=== PATIENT | female | born 1960 | race Hispanic/Latino ===

== ENCOUNTER 2020-04-24 00:38 | Emergency (ER) | payer OTHER ==
[2020-04-24] MEDS ORDERED: LABETALOL 20 MG/4 ML DISP.SYRIN IV ONE (01:06)
[2020-04-24 01:40] LABS: BASOPHILS % (AUTO) 0.6 % (0.0-5.0); EOSINOPHILS % (AUTO) 2.4 % (0.0-8.0); HEMATOCRIT 42.3 % (36-48); LYMPHOCYTES % (AUTO) 45.3 % (21.0-51.0); MEAN CORPUSCULAR HEMOGLOBIN 31.2 pg (27.0-33.0); MEAN CORPUSCULAR HGB CONC 32.9 g/dL (32.0-36.0); MEAN CORPUSCULAR VOLUME 95.1 fL (79-99); MONOCYTES % (AUTO) 7.4 % (3.0-13.0); NEUTROPHILS % (AUTO) 43.9 % (40.0-77.0); PLATELET COUNT (AUTO) 260 K/uL (130-400); RED BLOOD CELL COUNT(AUTO) 4.45 MIL/uL (4.00-5.50); RED CELL DISTRIBUTION WIDTH 12.8 % (11.0-15.5); WHITE BLOOD COUNT (AUTO) 8.3 K/uL (4.8-10.8)
[2020-04-24 01:47] LABS: CREATININE 0.8 mg/dL (0.5-1.5); POTASSIUM 3.2 mmol/L (3.5-5.1)
== END 2020-04-24 02:32 | disposition home or self-care (01) ==
LOC: EDH 00:38
DX: I10 Essential (primary) hypertension (principal); R51 Headache; Z90.710 Acquired absence of both cervix and uterus; Z90.49 Acquired absence of other specified parts of digestive tract; Z98.890 Other specified postprocedural states; Z87.891 Personal history of nicotine dependence
CPT/HCPCS: 36415; 70450; 80048; 84484; 85025; 93005; 96374

== ENCOUNTER 2020-05-03 06:23 | Observation (INO) | payer OTHER ==
[2020-05-03] MEDS ORDERED: ONDANSETRON HCL 4 MG/2 ML VIAL ONE (07:18)
[2020-05-03] MEDS ORDERED: LIDOCAINE 5% TOPICAL PATCH TP ONE (07:18)
[2020-05-03] MEDS ORDERED: ASPIRIN 325 MG TABLET ONE (07:19)
[2020-05-03 08:43] LABS: BASOPHILS % (AUTO) 0.4 % (0.0-5.0); EOSINOPHILS % (AUTO) 1.1 % (0.0-8.0); HEMATOCRIT 41.6 % (36-48); LYMPHOCYTES % (AUTO) 26.4 % (21.0-51.0); MEAN CORPUSCULAR HEMOGLOBIN 31.4 pg (27.0-33.0); MEAN CORPUSCULAR HGB CONC 33.2 g/dL (32.0-36.0); MEAN CORPUSCULAR VOLUME 94.8 fL (79-99); MONOCYTES % (AUTO) 5.2 % (3.0-13.0); NEUTROPHILS % (AUTO) 66.8 % (40.0-77.0); PLATELET COUNT (AUTO) 252 K/uL (130-400); RED BLOOD CELL COUNT(AUTO) 4.39 MIL/uL (4.00-5.50); RED CELL DISTRIBUTION WIDTH 12.7 % (11.0-15.5); WHITE BLOOD COUNT (AUTO) 7.5 K/uL (4.8-10.8)
[2020-05-03 08:57] LABS: APPEARANCE,URINE Clear (CLEAR); BILIRUBIN,URINE Negative (NEGATIVE); COLOR,URINE Yellow (YELLOW); GLUCOSE, URINE (UA) Negative (NEGATIVE); KETONES,URINE Negative (NEGATIVE); LEUKOCYTE ESTERASE ,URINE Negative (NEGATIVE); NITRATE,URINE Negative (NEGATIVE); OCCULT BLOOD,URINE Negative (NEGATIVE); PH,URINE 7.5 (5.0-8.0); PROTEIN,URINE Negative (NEGATIVE); UROBILINOGEN,URINE 0.2 mg/dL (0.2-1.0)
[2020-05-03 09:00] LABS: ALBUMIN 3.4 g/dL (3.5-5.0); BILIRUBIN,TOTAL 0.4 mg/dL (0.2-1.0); CREATININE 0.8 mg/dL (0.5-1.5); POTASSIUM 3.9 mmol/L (3.5-5.1); TOTAL PROTEIN, SERUM 7.7 g/dL (6.0-8.3)
[2020-05-03 09:03] LABS: INR 0.94 (0.85-1.15); PARTIAL THROMBOPLASTIN TIME 25.7 SEC (26.3-35.5); PROTHROMBIN TIME 10.2 SEC (9.6-11.6)
[2020-05-03] MEDS ORDERED: HYDRALAZINE HCL 20 MG/ML VIAL IV PRN (11:15)
[2020-05-03] MEDS ORDERED: NITROGLYCERIN 0.4 MG SL TAB SL PRN (11:15)
[2020-05-03] MEDS ORDERED: LACTULOSE 20 GM/30 ML UDCUP PO PRN (11:15)
[2020-05-03] MEDS ORDERED: ACETAMINOPHEN 325 MG TAB PO PRN (11:15)
[2020-05-03] MEDS ORDERED: ONDANSETRON HCL 4 MG/2 ML VIAL IV PRN (11:15)
--- NOTE | 2020-05-03 16:05 | NUR ---
DISCHARGE INSTRUCTION PROVIDED TO PATIENT ,ALONG WITH PRESCRIPTION AND FOLLOW UP APPT . DRESSING IS DRY AND INTACT . PATIENT VERBALIZED UNDERSTANDING
[2020-05-03] MEDS ORDERED: AMLO5TAB9 PO (16:26)
[2020-05-03 16:52] VITALS: BP 116/64
[2020-05-03 20:09] VITALS: BP 112/65
[2020-05-04 00:12] VITALS: BP 120/76
[2020-05-04 04:19] VITALS: BP 130/86
[2020-05-04 04:52] LABS: BASOPHILS % (AUTO) 0.7 % (0.0-5.0); EOSINOPHILS % (AUTO) 2.5 % (0.0-8.0); HEMATOCRIT 40.8 % (36-48); LYMPHOCYTES % (AUTO) 38.7 % (21.0-51.0); MEAN CORPUSCULAR HEMOGLOBIN 31.4 pg (27.0-33.0); MEAN CORPUSCULAR HGB CONC 32.6 g/dL (32.0-36.0); MEAN CORPUSCULAR VOLUME 96.2 fL (79-99); MONOCYTES % (AUTO) 6.8 % (3.0-13.0); NEUTROPHILS % (AUTO) 50.9 % (40.0-77.0); PLATELET COUNT (AUTO) 254 K/uL (130-400); RED BLOOD CELL COUNT(AUTO) 4.24 MIL/uL (4.00-5.50); RED CELL DISTRIBUTION WIDTH 12.9 % (11.0-15.5); WHITE BLOOD COUNT (AUTO) 7.3 K/uL (4.8-10.8)
[2020-05-04 05:08] LABS: CREATININE 0.8 mg/dL (0.5-1.5); POTASSIUM 3.9 mmol/L (3.5-5.1)
[2020-05-04] MEDS ORDERED: AMLODIPINE BESYLATE 5 MG TAB PO SCH (09:00)
[2020-05-04] MEDS ORDERED: ENOXAPARIN SODIUM 40 MG/0.4 ML SYRINGE SQ SCH (09:00)
[2020-05-04 09:01] VITALS: BP 128/81
--- NOTE | 2020-05-04 11:03 | NUR ---
SPOKE W PATIENT AT BEDSIDE PT LIVE W SPOUSE, IS ACTIVE, INDEPENDENT, EMPLOYED, WITH NO DME- STATES HAVING PROBLEMS [id number] HER BLOOD PRESSURE LATELY PENDING RECORDS FROM DR. LOU OFFICE. SPOUSE VANDANA TO TRANSPORT HOME, NALINI TO FOLLOW IF NEEDED Addendum: 05/04/20 at 1842 by ZACK TALLEY RN CM Amended: Links added.
[2020-05-04 11:44] VITALS: BP 134/76
[2020-05-04] MEDS ORDERED: ATOR40TA69 PO (15:26)
[2020-05-04] MEDS ORDERED: AMLO10TA7 PO (15:26)
[2020-05-04] MEDS ORDERED: AEC81 PO (15:26)
[2020-05-04 15:50] VITALS: BP 105/64
--- NOTE | 2020-05-04 16:31 | NUR ---
Discharge. Pt clear for discharge. VS stable. Pt aaox4. Airway patent breathing even and unlabored. Pt denies chest pain/sob Pt and daughter Gisela verbalizes understanding of follow up care with Dr Lewis and medication teaching
== END 2020-05-04 14:45 | disposition home or self-care (01) ==
LOC: EDH 06:23 → EDHIP 11:08 → 4BH 15:52
PROVIDERS: ADMIT Internal Medicine; ATTEND Internal Medicine
DX: R07.89 Other chest pain (principal); H93.19 Tinnitus, unspecified ear; I10 Essential (primary) hypertension; E66.9 Obesity, unspecified; Z90.710 Acquired absence of both cervix and uterus; Z90.49 Acquired absence of other specified parts of digestive tract
CPT/HCPCS: 36415 ×2; 71045; 80048; 80053; 80061; 81003; 84484 ×4; 85025 ×2; 85610; 85730; 93005; 96372; 99285; G0378 ×14; J1650; J2405

== ENCOUNTER → 2020-05-23 | Outpatient (CLI) | payer OTHER ==
[~2020-05-23] MED LIST: AEC81 PO; AMLO-258 PO; ATOR40TA69 PO
== END | disposition home or self-care (01) ==
LOC: RAH 10:34
PROVIDERS: ATTEND Internal Medicine Cardiovascular Disease
DX: Z13.6 Encounter for screening for cardiovascular disorders (principal)
CPT/HCPCS: 75571

== ENCOUNTER 2025-02-02 14:33 | Emergency (ER) | payer BC, OTHER ==
[~2025-02-02] VITALS: Ht 165.1 cm; Wt 108.9 kg
--- NOTE | 2025-02-02 15:23 | HMCIMG ---
CHEST 1VW HISTORY: Abdominal pain COMPARISON: 05/03/2020 FINDINGS: A frontal projection of the chest was obtained. No acute pulmonary infiltrates is seen. The heart is borderline enlarged. Degenerative changes are seen. No evidence of aortic calcification is seen. IMPRESSION: 1. No acute pulmonary infiltrate is seen.
[2025-02-02] MEDS: LACTATED RINGERS 1000ML 1,000 ML IV ONE (15:29)
[2025-02-02] MEDS: ketOROlac 15MG/ML VIAL (15MG/ML) IV ONE (15:30)
[2025-02-02 15:35] LABS: BASOPHILS # (AUTO) 0.06 K/uL (0.00-0.20); BASOPHILS % (AUTO) 0.9 % (0.0-5.0); HEMATOCRIT 38.3 % (36-48); IMMATURE GRANULOCYTE ABSOLUTE 0.02 K/uL (0-1); LYMPHOCYTES % (AUTO) 29.6 % (21.0-51.0); MEAN CORPUSCULAR HEMOGLOBIN 31.8 pg (27.0-33.0); MEAN CORPUSCULAR HGB CONC 33.4 g/dL (32.0-36.0); MEAN CORPUSCULAR VOLUME 95.3 fL (79-99); MONOCYTES # (AUTO) 0.5 K/uL (0.1-1.0); MONOCYTES % (AUTO) 7.3 % (3.0-13.0); NEUTROPHILS % (AUTO) 58.9 % (40.0-77.0); PLATELET COUNT (AUTO) 277 K/uL (130-400); RED BLOOD CELL COUNT(AUTO) 4.02 MIL/uL (4.00-5.50); RED CELL DISTRIBUTION WIDTH 13.2 % (11.0-15.5); WHITE BLOOD COUNT (AUTO) 6.8 K/uL (4.8-10.8)
[2025-02-02 15:44] LABS: CREATININE 0.7 mg/dL (0.5-1.0); POTASSIUM 3.7 mmol/L (3.5-5.1)
--- NOTE | 2025-02-02 16:05 | HMCIMG ---
CT ABDOMEN/PELVIS W/O CONTRAST HISTORY: Left flank pain COMPARISON: None TECHNIQUE: Multiple sequential axial images of the abdomen and pelvis were obtained from the dome of the diaphragm through symphysis pubis. Patient was not given contrast through intravenous route. Oral contrast was not given. FINDINGS: No pleural effusion is seen bilaterally. There is no evidence of parenchymal disease or pulmonary nodule of the visualized lower lungs. Degenerative changes of the thoracolumbar spine are present. The heart is not enlarged. Postcholecystectomy changes are seen. There are bilateral renal cortical scarring. The liver, spleen, adrenal glands and pancreas are unremarkable. There is no evidence of hydronephrosis bilaterally. No evidence of renal stone is seen. There is diverticulosis. Fecal material is seen in the colon. There are normal size retroperitoneal and mesenteric lymph nodes. No ascites is seen. No CT evidence of acute appendicitis is seen. Pelvic sidewalls are symmetric bilaterally. The bladder is poorly distended. IMPRESSION: 1. Bilateral renal cortical scarring. There is left external renal pelvis. Otherwise no hydronephrosis is seen. CT was performed with one or more following dose reduction techniques: automated exposure control, adjustment of the mA and kv according to patient's size, or use of a iterative reconstruction technique.
[2025-02-02] MEDS: hydroMORPHone 1 MG INJ IVP ONE (16:21)
[2025-02-02 16:45] LABS: APPEARANCE,URINE CLEAR (CLEAR); BILIRUBIN,URINE NEGATIVE (NEGATIVE); COLOR,URINE LIGHT-YELLOW (YELLOW); GLUCOSE, URINE (UA) NEGATIVE (NEGATIVE); KETONES,URINE 10 mg/dL (NEGATIVE); LEUKOCYTE ESTERASE ,URINE NEGATIVE Leu/uL (NEGATIVE); NITRATE,URINE NEGATIVE (NEGATIVE); OCCULT BLOOD,URINE MODERATE (NEGATIVE); PH,URINE 5.5 (5.0-8.0); PROTEIN,URINE NEGATIVE (NEGATIVE); UROBILINOGEN,URINE 0.2 mg/dL (0.2-1.0)
[2025-02-02 16:46] LABS: ADD UA MICROSCOPIC YES
[2025-02-02 16:47] LABS: MUCUS,URINE RARE LPF (None Seen); RBC,URINE 26-50 /HPF (0-1); SQUAMOUS EPITHELIAL CELL,UR RARE /HPF (0-2)
--- NOTE | 2025-02-02 17:42 | ERN ---
General Chief Complaint: Flank Pain Stated Complaint: LT FLANK PAIN Time Seen by MD: 14:36 History of Present Illness Initial Comments 64-year-old female presents for left flank and left lower abdominal pain for the last three days. Patient reports initially the pain started in the left flank about three days ago. It was mild but since that has increased. It is located in left flank and radiates to the left lower quadrants and also down the left buttock. She reports that it is present at all times in his severe. It was not increase with any movements or palpation. She reports nausea without vomiting. No fevers. No diarrhea. No urinary changes. She went to her PCP and was started on Macrobid. Allergies: Coded Allergies: No Allergy Information Available (Verified Allergy, Unknown, 05/03/20) Home Meds Active Scripts Atorvastatin Calcium (LIPITOR) 40 Mg Tablet, 40 MG PO DAILY for 30 Days, #30 TAB Prov:JASON RAMOS MD 05/04/20 Aspirin (ASPIRIN 81 MG ECTAB) 81 Mg Ectab, 81 MG PO DAILY for 30 Days, #30 TAB.EC Prov:JASON RAMOS MD 05/04/20 Amlodipine Besylate (Amlodipine Besylate) 10 Mg Tablet, 10 MG PO DAILY for 30 Days, #30 TAB Prov:JASON RAMOS MD 05/04/20 Past Medical History Past Medical History: Diabetes-Type II, Hypertension Past Surgical History: Hysterectomy, Cholecystectomy, Surgical History Other: HERNIA ROS Dictation CONSTITUTIONAL: No chills, no fever, no weakness, no diaphoresis, no malaise. HEAD/FACE: No signs of trauma. EENT: No eye pain, no blurred vision, no tearing, no double vision, no ear pain, no ear discharge, no nose pain, no nasal congestion, no throat pain, no throat swelling, no mouth pain. RESPIRATORY: No cough, no orthopnea, no SOB, no stridor, no wheezing. CARDIOVASCULAR: No chest pain, no edema, no palpitations, no syncope. GASTROINTESTINAL/ABDOMINAL: Left flank pain GENITOURINARY: No abnormal discharge, no dysuria, no frequent urination, no hematuria. No complaints of pain in the genitals. MUSCULOSKELETAL: No back pain, no gout, no joint pain, no joint swelling, no muscle pain, no muscle stiffness, no neck pain. INTEGUMENTARY: No change in color, no change in hair/nails, no dryness, no lesion, no lumps, no rash. NEUROLOGICAL/PSYCH: No anxiety, not depressed, no emotional problem, no headache, no numbness, no pre-existing deficit, no history of seizures, no tremors, no weakness. HEMATOLOGIC/LYMPHATIC: Not anemic, no history of blood clots, no apparent bleeding, no bruising, glands not swollen. All Systems Negative, Except as Noted. Physical Exam Physical Exam Dictation VITAL SIGNS: Reviewed. GENERAL APPEARANCE: Alert, oriented x3, no acute distress, obese. HEAD AND FACE: Non-traumatic. EYES: PERRL, pink conjunctivas, eyelid no trauma, anterior chamber clear. EARS: Pinnas intact and no signs of trauma or erythema. Ear canals clear and no discharge. TMs no erythema. NOSE: No discharge, no bleeding. OROPHARYNX: Mouth normal, teeth no caries, tongue pink. Pharynx clear, no erythema. Tonsils no exudates, no abscesses noted. Mucous membrane moist. NECK: Supple, non-tender, no thyromegaly, no masses, no JVD, no bruits. BREAST: Deferred. CHEST: No tenderness, no crepitus, no paradoxical movement, no retractions. LUNGS: Clear, well-ventilated, symmetric, no rales, no wheezing, no rhonchi, no stridor, good breath sounds bilaterally. HEART: Regular rate, regular rhythm, no murmur, no gallops. VASCULAR: No peripheral edema. ABDOMEN: Soft, positive bowel sounds, nondistended, no guarding, nontender, no rebound, no masses no hepatomegaly, no splenomegaly, no Fuentes's sign, no hernias. RECTAL: Deferred. GENITAL: Deferred. NEUROLOGICAL: Normal speech, gross motor function intact, gross sensory function intact. MUSCULOSKELETAL: Neck nontender, full range of motion, back nontender, full range of motion. EXTREMITIES: Nontender, full range of motion. SKIN: Color pink, dry, no turgor, no rash, no lacerations, no abrasions, no contusions. LYMPHATICS: Deferred. Results Laboratory and Microbiology Lab and Micro Result Laboratory Tests Test 02/02/25 15:24 02/02/25 16:21 White Blood Count 6.8 K/uL (4.8-10.8) Red Blood Count 4.02 MIL/uL (4.00-5.50) Hemoglobin 12.8 g/dL (12.0-16.0) Hematocrit 38.3 % (36-48) Mean Corpuscular Volume 95.3 fL (79-99) Mean Corpuscular Hemoglobin 31.8 pg (27.0-33.0) Mean Corpuscular Hemoglobin Concent 33.4 g/dL (32.0-36.0) Red Cell Distribution Width 13.2 % (11.0-15.5) Platelet Count 277 K/uL (130-400) Mean Platelet Volume 10.5 fL (7.5-10.5) Immature Granulocyte % (Auto) 0.3 % (0-1) Neutrophils (%) (Auto) 58.9 % (40.0-77.0) Lymphocytes (%) (Auto) 29.6 % (21.0-51.0) Monocytes (%) (Auto) 7.3 % (3.0-13.0) Eosinophils (%) (Auto) 3.0 % (0.0-8.0) Basophils (%) (Auto) 0.9 % (0.0-5.0) Neutrophils # (Auto) 4.0 K/uL (1.8-7.7) Lymphocytes # (Auto) 2.0 K/uL (1.0-4.8) Monocytes # (Auto) 0.5 K/uL (0.1-1.0) Eosinophils # (Auto) 0.20 K/uL (0.00-0.70) Basophils # (Auto) 0.06 K/uL (0.00-0.20) Absolute Immature Granulocyte (auto 0.02 K/uL (0-1) Nucleated Red Blood Cells 0.0 % (0.0-0.19) Sodium Level 139 mmol/L (136-145) Potassium Level 3.7 mmol/L (3.5-5.1) Chloride Level 103 mmol/L (101-111) Carbon Dioxide Level 28 mmol/L (21-32) Blood Urea Nitrogen 17 mg/dL (7-18) Creatinine 0.7 mg/dL (0.5-1.0) Glomerular Filtration Rate Calc 98 mL/min (>90) Random Glucose 112 mg/dL (70-105) H Total Calcium 8.9 mg/dL (8.5-10.1) Total Creatine Kinase 67 U/L (21-232) Troponin I High Sensitivity 5 ng/L (4-50) Lipase 38 U/L (16-77) Urine Color LIGHT-YELLOW (YELLOW) Urine Appearance CLEAR (CLEAR) Urine pH 5.5 (5.0-8.0) Urine Specific [place] 1.008 (1.001-1.031) Urine Protein NEGATIVE mg/dL (NEGATIVE) Urine Glucose (UA) NEGATIVE mg/dL (NEGATIVE) Urine Ketones 10 mg/dL (NEGATIVE) H Urine Occult Blood MODERATE (NEGATIVE) H Urine Nitrate NEGATIVE (NEGATIVE) Urine Bilirubin NEGATIVE mg/dL (NEGATIVE) Urine Urobilinogen 0.2 mg/dL (0.2-1.0) Urine Leukocyte Esterase NEGATIVE Renae/uL Urine RBC 26-50 /HPF (0-1) H Urine WBC 2-5 /HPF (0-1) H Urine Squamous Epithelial Cells RARE /HPF (0-2) Urine Bacteria None /HPF (None Seen) Urine Hyaline Casts 2-5 /LPF (0-1 /LPF) H MDM CC: Left flank and back pain radiate down the leg. Historian: Patient Comorbidities: Obesity, diabetes, hypertension. History of hysterectomy, cholecystectomy, CC Limitations by social determinants of health: None Differential diagnosis: Kidney stone, pelvic disorder, diverticulitis, pyelonephritis, sciatica, musculoskeletal pain, other. Labs (independently interpreted by me): No leukocytosis no anemia. Chemistry panel normal. CK normal. Troponin normal. Lipase normal. CXR (independently ordered and interpreted by me): No acute abnormalities. No cardiomegaly pleural effusions or focal infiltrates. CT of the abdomen and pelvis without contrast (independently interpreted by me): No acute abnormalities. Treatment in ED: 1 L lactated Ringer's, 15 mg IM Toradol, 1 mg Dilaudid. Re-evaluation: Pain has dramatically improved. She has a blood in the urine, it is unclear where she recently passed a stone or she has a mild infection. I do not see any signs of sepsis or bacteremia or any other life-threatening pathology. I do not think this is musculoskeletal in nature based on the presentation. I palpated are multiple times and she has full range of motion without any pain no signs of lumbar spine with straightening her pain. Low suspicion for pelvic pathology. Plan will be to discharge with [place] and meloxicam for pain, and switch to cefpodoxime and have her stop taking the Macrobid. I did recommend she follows up with the PCP in a few days if you continue with symptoms. ED Course Orders Procedure Category Date Status Time Cbc With Differential LAB 02/02/25 Complete 14:47 Troponin I High LAB 02/02/25 Complete Sensitivity 14:47 Urinalysis Profile LAB 02/02/25 Complete 14:47 Lactated Ringers PHA 02/02/25 Complete 1000ml (Lactated 15:00 Ketorolac PHA 02/02/25 Complete Tromethamine 15mg/Ml 15:00 Hydromorphone 1 Mg PHA 02/02/25 Complete Inj (Dilaudid 1mg Inj 15:00 Creatine Kinase, Total LAB 02/02/25 Complete 14:47 Ct Abdomen/Pelvis W/O CT 02/02/25 Resulted Contrast 14:47 Chest 1vw RAD 02/02/25 Resulted 14:47 Lipase LAB 02/02/25 Complete 14:47 Basic Metabolic Panel LAB 02/02/25 Complete 14:47 Current Medications Medications (Trade) Dose Ordered Sig/Stefanie Route PRN Reason Start Time Stop Time Status Last Admin Dose Admin Hydromorphone HCl (DiLAUDid 1MG INJ) 1 mg ONCE ONCE IVP 02/02/25 15:00 02/02/25 15:01 DC Ketorolac Tromethamine (toRADol) 15 mg ONCE ONCE IV 02/02/25 15:00 02/02/25 15:01 DC 02/02/25 15:30 Lactated Ringer's 1,000 ml @ 0 mls/hr ONCE ONCE IV 02/02/25 15:00 02/02/25 15:01 DC 02/02/25 15:29 Vital Signs Date Time Temp Pulse Resp B/P (MAP) Pulse Ox O2 Delivery O2 Flow Rate FiO2 02/02/25 15:34 98.2 63 12 134/83 98 Room Air* 0 21 02/02/25 14:43 97.9 68 16 157/92 98 Room Air 0 DX & DISP Disposition: Discharge Departure Impression: Primary Impression: Left flank pain Additional Impressions: Hematuria, UTI (urinary tract infection) Condition: Stable Scripts Meloxicam (Meloxicam) 15 Mg Tablet 15 MG PO DAILY PRN for PAIN for 10 Days, #10 TAB Prov: WORTH,ROXANNE E DO 02/02/25 Hydrocodone/Acetaminophen (Hydrocodon-Acetaminophen 5-325) 5 Mg-325 Mg Tablet 1 TAB PO TIDP PRN for pain for 5 Days, #15 TAB 0 Refills Prov: ROXANNE RICHARD DO 02/02/25 Cefpodoxime Proxetil (Cefpodoxime Proxetil) 200 Mg Tablet 200 MG PO BID for 7 Days, #14 TAB Prov: ROXANNE RICHARD DO 02/02/25 Additional Instructions: As we discussed, you may have recently passed a kidney stone or have a bladder infection. Your blood work is unremarkable. The urinalysis shows blood in your urine. The CT scan of your abdomen and pelvis was no major abnormalities. I recommend that you stop taking nitrofurantoin. I have prescribed cefpodoxime, which is a stronger antibiotic. Take as prescribed. I have prescribed meloxicam to take daily for pain. I have also prescribed [place] tabs to use as needed for pain. As we discussed, please follow up with the primary doctor in 3-5 days if you continue with symptoms. Referrals: CEE CARTER (PCP) ROXANNE RICHARD DO Feb 02, 2025 17:42
[2025-02-02] MEDS ORDERED: HYDR-4060 PO (17:51)
[2025-02-02] MEDS ORDERED: CEFP200T14 PO (17:51)
[2025-02-02] MEDS ORDERED: MELO-108 PO (17:51)
[2025-02-02 18:12] VITALS: BP 113/55; PULSE 65; RESP 18; TEMP 98.3; O2SAT 99
--- NOTE | 2025-02-02 18:12 | NUR ---
DC PATIENT WAS DC'D BY DR RICHARD TODAY, I DC'D PATIENTS IV WITH CATH STILL INTACT AND APPLIED 2X2 GAUZE WITH COBAN I EXPLAINED TO PATIENT TO FOLLOW UP WITH PCP, PROVIDED INFO BASED ON DIAGNOSIS, AND NEW PRESCRIPTIONS AND HOW TO TAKE THEM PATIENT AMBULATED OUT OF ED, NO COMPLICATIONS
== END 2025-02-02 18:09 | disposition home or self-care (01) ==
LOC: EDH 14:33
DX: N39.0 Urinary tract infection, site not specified (principal); R10.30 Lower abdominal pain, unspecified; R31.9 Hematuria, unspecified; E11.9 Type 2 diabetes mellitus without complications; E66.9 Obesity, unspecified; I10 Essential (primary) hypertension; Z79.82 Long term (current) use of aspirin; Z79.899 Other long term (current) drug therapy; Z90.49 Acquired absence of other specified parts of digestive tract; Z90.710 Acquired absence of both cervix and uterus
CPT/HCPCS: 99284; 74176; 96374; 96361; 71045; 82550; 84484; 80048; 83690; 85025; 81001; 36415; J1885; J7120; J1171